=== PATIENT | female | born 1960 | race Caucasian/White ===

== ENCOUNTER 2021-06-04 06:01 | Emergency (ER) | payer OTHER ==
[~2021-06-04] VITALS: Ht 162.6 cm; Wt 63.5 kg
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
[2021-06-04] MEDS ORDERED: MORPHINE SULFATE INJ 2 MG/ML DISP.SYRIN IV ONE ×2 (06:30→09:00)
[2021-06-04] MEDS ORDERED: ONDANSETRON HCL/PF 4 MG/2 ML VIAL IVP ONE ×2 (06:30→09:00)
[2021-06-04] MEDS ORDERED: IV NS 0.9% 1,000 ML BAG IV ONE (06:30)
[2021-06-04] MEDS ORDERED: ONDANSETRON HCL/PF 4 MG/2 ML VIAL ONE ×2 (06:35→08:59)
[2021-06-04] MEDS ORDERED: MORPHINE SULFATE INJ 4 MG/ML DISP.SYRIN ONE ×2 (06:35→08:59)
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
--- NOTE | 2021-06-04 07:11 | NUR ---
PT TAKEN TO CT VIA GISSEL
--- NOTE | 2021-06-04 07:35 | NUR ---
PT TAKEN TO CT VIA GISSEL
[2021-06-04] MEDS ORDERED: LIDOCAINE HCL/PF 1% 30 ML VIAL TP ONE (08:30)
[2021-06-04] MEDS ORDERED: LIDOCAINE 1% INJ 50 ML MDV IJ ONE ×2 (08:34→08:47)
[2021-06-04] MEDS ORDERED: LIDOCAINE 1%-EPI 1:100,000 20 ML VIAL ONE (08:39)
--- NOTE | 2021-06-04 09:07 | NUR ---
DR DIAZ AT BEDSIDE FOR LACERATION REPAIR.
[2021-06-04] MEDS ORDERED: IBUP-1957 PO (09:32)
[2021-06-04] MEDS ORDERED: CEPH500C2 PO (09:32)
--- NOTE | 2021-06-04 10:14 | NUR ---
Patient discharged to home in stable condition. Written and verbal after care instructions given. Patient verbalizes understanding of instruction.IV removed. Catheter intact and site benign. Pressure and 4x4 applied to site. No bleeding noted.
[2021-06-04 10:15] VITALS: BP 132/86
== END 2021-06-04 10:16 | disposition home or self-care (01) ==
LOC: ER 06:03
DX: S02.2XXA Fracture of nasal bones, initial encounter for closed fracture (principal); S22.41XA Multiple fractures of ribs, right side, initial encounter for closed fracture; S01.511A Laceration without foreign body of lip, initial encounter; I10 Essential (primary) hypertension; Z88.5 Allergy status to narcotic agent; Z88.2 Allergy status to sulfonamides; Z60.2 Problems related to living alone; V89.2XXA Person injured in unspecified motor-vehicle accident, traffic, initial encounter; Y93.89 Activity, other specified; Y92.89 Other specified places as the place of occurrence of the external cause; Y99.8 Other external cause status
CPT/HCPCS: 12013; 70450; 70486; 71045; 72125; 74176; 96361; 96374; 96375; 96376; 99284; J2270 ×2; J2405 ×2; J3490 ×2

== ENCOUNTER 2021-06-07 10:43 | Emergency (ER) | payer OTHER ==
[~2021-06-07] VITALS: Ht 157.5 cm; Wt 55.3 kg
[~2021-06-07 10:43] MED LIST: CEPH500C2 PO; IBUP-1957 PO
[2021-06-07 10:47] VITALS: BP 134/99
--- NOTE | 2021-06-07 11:20 | NUR ---
Patient discharged to home in stable condition. Written and verbal after care instructions given. Patient verbalizes understanding of instruction.
== END 2021-06-07 11:22 | disposition home or self-care (01) ==
LOC: ER 10:45
DX: S01.511D Laceration without foreign body of lip, subsequent encounter (principal); I10 Essential (primary) hypertension; Z88.5 Allergy status to narcotic agent; Z88.2 Allergy status to sulfonamides; Z60.2 Problems related to living alone; X58.XXXD Exposure to other specified factors, subsequent encounter

== ENCOUNTER 2024-10-24 08:25 | Inpatient (IN) | payer BC, OTHER, MEDICARE ==
[~2024-10-24] VITALS: Ht 157.5 cm; Wt 54.4 kg
[2024-10-24 08:49] LABS: PLATELET COUNT (AUTO) 357 K/uL (150-450); RED BLOOD CELL COUNT(AUTO) 4.54 MIL/uL (4.0-5.2); RED CELL DISTRIBUTION WIDTH 12.9 % (11.5-15.0); WHITE BLOOD COUNT (AUTO) 11.2 K/uL (4.3-11.0)
[2024-10-24 08:56] LABS: CALCIUM, SERUM 9.4 mg/dL (8.5-10.1); CREATININE 0.7 mg/dL (0.6-1.3); SODIUM SERUM 136.0 mmol/L (136-145); UREA NITROGEN, BLOOD 11.0 mg/dL (7-18)
[2024-10-24] MEDS ORDERED: LIDOCAINE VISCOUS 2% UD 15 ML UDC ONE (08:57)
[2024-10-24] MEDS ORDERED: ONDANSETRON HCL/PF 4 MG/2 ML VIAL ONE (08:57)
[2024-10-24] MEDS ORDERED: FAMOTIDINE/PF INJ 20 MG/2 ML VIAL IV ONE (08:57)
[2024-10-24] MEDS ORDERED: MAG HYDROX/AL HYDROX/SIMETH 30 ML UDC ONE (08:57)
[2024-10-24 09:01] LABS: ASPARTATE AMINOTRANSFERASE 22.0 U/L (15-37); TOTAL PROTEIN, SERUM 8.0 g/dL (6.4-8.2)
[2024-10-24] MEDS ORDERED: MORPHINE SULFATE INJ 4 MG/ML DISP.SYRIN ONE (09:03)
[2024-10-24] MEDS: IV NS 0.9% 1,000 ML BAG IV ONE ×2 (09:08→10:38)
[2024-10-24] MEDS: ONDANSETRON HCL/PF 4 MG/2 ML VIAL IVP ONE (09:09)
[2024-10-24] MEDS: FAMOTIDINE/PF INJ 20 MG/2 ML VIAL IV ONE (09:09)
[2024-10-24] MEDS: LIDOCAINE VISCOUS 2% UD 15 ML UDC MM ONE (09:09)
[2024-10-24] MEDS: MAG HYDROX/AL HYDROX/SIMETH 30 ML UDC PO ONE (09:09)
[2024-10-24] MEDS: MORPHINE SULFATE INJ 2 MG/ML DISP.SYRIN IV ONE ×2 (09:09→10:38)
[2024-10-24 09:26] LABS: APPEARANCE,URINE CLEAR (CLEAR); BLOOD, URINE NEGATIVE Ery/uL (NEGATIVE); LEUKOCYTE ESTERASE ,URINE NEGATIVE (NEGATIVE); NITRITE, URINE NEGATIVE (NEGATIVE); UGLUCOSE NEGATIVE (NEGATIVE)
[2024-10-24 09:28] LABS: ADD URINE CULTURE NO; SQUAMOUS EPITHELIAL CELL,UR Few /HPF (None Seen)
[2024-10-24] MEDS ORDERED: IV NS 0.9% 1,000 ML BAG IV ONE (10:30)
[2024-10-24] MEDS: PIPERACILLIN /TAZOBACTAM 3.375 G in IV D5W 50 ML IV ONE (10:37)
[2024-10-24] MEDS ORDERED: MAGNESIUM HYDROXIDE 30 ML UDC PO PRN (11:00)
[2024-10-24] MEDS ORDERED: DOSING PER PHARMACY-ZOSYN IV 1 EA EA XX PRN (11:00)
[2024-10-24] MEDS ORDERED: Z GUARD REMEDY 4 OZ OINT TP PRN (11:00)
[2024-10-24] MEDS ORDERED: ACETAMINOPHEN 325 MG TABLET PO PRN (11:00)
[2024-10-24] MEDS ORDERED: LISI10TA29 PO (11:02)
[2024-10-24] MEDS ORDERED: MULT-1275 PO (11:02)
[2024-10-24] MEDS ORDERED: CHOL400T11 PO (11:02)
[2024-10-24] MEDS: ONDANSETRON HCL/PF 4 MG/2 ML VIAL IV STA (11:24)
[2024-10-24] MEDS ORDERED: POTASSIUM CL. PREMIX PERIPHER. 50 ML ONE (11:36)
[2024-10-24] MEDS: POTASSIUM CL. PREMIX PERIPHER. 50 ML IV SCH (11:46)
[2024-10-24 12:00] VITALS: BP 149/88; TEMP 97.9; O2SAT 96
[2024-10-24] MEDS: IV NS 0.9% 1,000 ML IV PRN (12:28)
[2024-10-24 12:45] VITALS: BP 149/88; TEMP 97.9; O2SAT 96
[2024-10-24] MEDS: PIPERACILLIN /TAZOBACTAM 3.375 G in IV D5W 100 ML IV SCH (14:04)
[2024-10-24 14:25] LABS: INR 1.0 (0.91-1.10)
[2024-10-24] MEDS: ONDANSETRON HCL/PF 4 MG/2 ML VIAL IVP PRN (15:24)
[2024-10-24] MEDS: MORPHINE SULFATE INJ 2 MG/ML DISP.SYRIN IV PRN (15:50)
[2024-10-24 16:00] VITALS: BP 151/81; TEMP 98.1; O2SAT 97
[2024-10-24 16:02] VITALS: BP 151/81; TEMP 98.1; O2SAT 97
[2024-10-24 20:00] VITALS: BP_SYST 131; BP_SYST 138; BP_DIAS 80; TEMP 97.9; TEMP 98.1; O2SAT 97
[2024-10-25 07:45] LABS: PLATELET COUNT (AUTO) 284 K/uL (150-450); RED BLOOD CELL COUNT(AUTO) 4.13 MIL/uL (4.0-5.2); RED CELL DISTRIBUTION WIDTH 12.9 % (11.5-15.0); WHITE BLOOD COUNT (AUTO) 8.9 K/uL (4.3-11.0)
[2024-10-25 08:00] VITALS: BP 138/71; TEMP 98.1; O2SAT 98
[2024-10-25 08:24] LABS: CALCIUM, SERUM 8.6 mg/dL (8.5-10.1); CREATININE 0.6 mg/dL (0.6-1.3); PHOSPHORUS 2.9 mg/dL (2.5-4.9); SODIUM SERUM 141.0 mmol/L (136-145); UREA NITROGEN, BLOOD 6.0 mg/dL (7-18)
[2024-10-25] MEDS: LISINOPRIL (10MG) 10 MG TABLET PO SCH (11:56)
[2024-10-25 16:00] VITALS: BP 137/72; TEMP 98.8; O2SAT 95
[2024-10-25 20:00] VITALS: BP 151/84; TEMP 97.7; O2SAT 97
[2024-10-25] MEDS: MAG HYDROX/AL HYDROX/SIMETH 30 ML UDC PO PRN (21:18)
[2024-10-26 07:25] LABS: PLATELET COUNT (AUTO) 276 K/uL (150-450); RED BLOOD CELL COUNT(AUTO) 4.20 MIL/uL (4.0-5.2); RED CELL DISTRIBUTION WIDTH 12.9 % (11.5-15.0); WHITE BLOOD COUNT (AUTO) 7.4 K/uL (4.3-11.0)
[2024-10-26 07:40] LABS: CALCIUM, SERUM 8.6 mg/dL (8.5-10.1); CREATININE 0.5 mg/dL (0.6-1.3); SODIUM SERUM 141.0 mmol/L (136-145); UREA NITROGEN, BLOOD 8.0 mg/dL (7-18)
[2024-10-26 08:50] VITALS: BP 131/73; TEMP 98.4; O2SAT 100
[2024-10-26] MEDS ORDERED: AMOX-430 PO (10:22)
[2024-10-26] MEDS ORDERED: AMOX1TAB16 PO (11:44)
== END 2024-10-26 12:00 | disposition home or self-care (01) | DRG 373 ==
LOC: ER 08:41 → MED 11:14
PROVIDERS: ADMIT Internal Medicine; ATTEND Internal Medicine
DX: K35.32 Acute appendicitis with perforation, localized peritonitis, and gangrene, without abscess (principal); I10 Essential (primary) hypertension; Z88.5 Allergy status to narcotic agent; Z79.899 Other long term (current) drug therapy; Z90.49 Acquired absence of other specified parts of digestive tract; Z88.8 Allergy status to other drugs, medicaments and biological substances
CPT/HCPCS: 36415; 71045-TC; 80048-TC; 80076-TC; 81001; 83605-TC; 83690-TC; 83735-TC; 84100-TC; 85025-TC; 85730-TC; 87040-TC; A4223; G0378; J1308; J2270; J2405; J2543; J3480; J7030; J7040; J7050; J7060